=== PATIENT | female | born 1940 | race Hispanic/Latino ===

== ENCOUNTER 2018-07-31 22:57 | Emergency (ER) | payer MEDICARE ==
[2018-07-31 23:04] VITALS: TEMP 98; O2SAT 98
[2018-07-31] MEDS ORDERED: Sodium Chloride 0.9% 1,000 ML IV STA (23:14)
--- NOTE | 2018-07-31 23:31 | ED PDOC ---
HPI: General Adult Time Seen by Provider: 07/31/18 23:01 Chief Complaint (Nursing): Dizziness/Lightheaded Chief Complaint (Provider): High blood pressure History Per: Patient, Family History/Exam Limitations: no limitations Onset/Duration Of Symptoms: Hrs Current Symptoms Are (Timing): Better Additional History Per: Patient Additional Complaint(s): 78yo female, with history of hypertension, pacemaker, comes to ER accompanied by her daughter for evaluation of an episode of elevated blood pressure. Patient states she was at home, felt "dizzy" and unwell; patient states she is unable to exactly explain the symptoms but states she "didnt feel like myself." She took her blood pressure, which was 200/100 and states normally the pressure is well controlled with medication. Per patient's daughter, the patient is compliant with her medication. She reprots prior to the episode, she felt normal. Of note, patient states she ate some soup "which was delicious but salty" and feels that might have triggered the episode. Patient additionally states 2 weeks ago, she was hospitalized at [facility] due to a fever and was diagnosed with a viral ill ness. Patient states today, shortly after calling 911, she took a dose of Amlodopine and now in the ER, she feels her symptoms are resolved. No additional complaints. PMD: Dr. Ramón Almanza Past Medical History Reviewed: Historical Data, Nursing Documentation, Vital Signs Vital Signs: Last Vital Signs Temp 98.0 F 07/31/18 23:01 Pulse 82 07/31/18 23:01 Resp 18 07/31/18 23:01 BP 160/123 H 07/31/18 23:01 Pulse Ox 98 07/31/18 23:01 - Medical History PMH: HTN - Surgical History Surgical History: Pacemaker - Family History Family History: States: No Known Family Hx - Living Arrangements Living Arrangements: With Family - Social History Current smoker - smoking cessation education provided: No Alcohol: None Drugs: Denies - Allergies Allergies/Adverse Reactions: Allergies Allergy/AdvReac Type Severity Reaction Status Date / Time Penicillins Allergy RASH Verified 07/31/18 23:01 Review of Systems ROS Statement: Except As Marked, All Systems Reviewed And Found Negative (as per HPI) Neurological: Positive for: Dizziness Physical Exam - Reviewed Nursing Documentation Reviewed: Yes Vital Signs Reviewed: Yes - Physical Exam Appears: Positive for: Non-toxic, No Acute Distress Head Exam: Positive for: ATRAUMATIC, NORMAL INSPECTION, NORMOCEPHALIC Skin: Positive for: Normal Color Eye Exam: Positive for: Normal appearance Neck: Positive for: Normal, Supple Cardiovascular/Chest: Positive for: Regular Rate, Rhythm. Negative for: Tachycardia Respiratory: Positive for: Normal Breath Sounds. Negative for: Respiratory Distress Gastrointestinal/Abdominal: Positive for: Normal Exam, Soft Back: Positive for: Normal Inspection Extremity: Positive for: Normal ROM. Negative for: Pedal Edema Neurologic/Psych: Positive for: Alert, Oriented. Negative for: Motor/Sensory Deficits - Laboratory Results Result Diagrams: 07/31/18 23:30 07/31/18 23:30 - ECG O2 Sat by Pulse Oximetry: 98 (RA) Pulse Ox Interpretation: Normal Medical Decision Making Medical Decision Making: Assessment: 78yo female with resolved episode of hypertension Plan: -- Labs -- EKG -- IV FLuids -- Chest x-ray Patient to be discharged home if no recurrence of symptoms. 0000: Pt with normal paced EKG. Pt comfortable with normal BP and normal HR. PT currently asymptomatic. RN reported that peripheral line was not appropriately placed and fluids were stopped. However, pt tolerating PO water and IV fluids not necessary at this time. PT to be signed out to Dr. Stokes pending labs and most likely discharge home. Scribe Attestation: Documented by Bekah Steward, acting as a scribe for Cleo Montano MD. Provider Scribe Attestation: All medical record entries made by the Scribe were at my direction and personally dictated by me. I have reviewed the chart and agree that the record accurately reflects my personal performance of the history, physical exam, medical decision making, and the department course for this patient. I have also personally directed, reviewed, and agree with the discharge instructions and disposition. 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 Return to the emergency department if symptoms worsen or if new symptoms develop. Instructions: High Blood Pressure Emergencies, Malignant Hypertension (DC), Dizziness, Nonvertigo, (DC) Forms: [employer] (Portuguese) Print Language: LUXEMBOURGISH Patient Signed Over To: Parag Stokes
[2018-07-31 23:47] LABS: BASO % 0.8 % (0.0-2.0); EOS # 0.1 K/uL (0.0-0.7); EOS % 2.2 % (0.0-4.0); HEMOGLOBIN 14.3 g/dL (12.0-16.0); LYMPH # 1.3 K/uL (1.0-4.3); LYMPH % 21.3 % (20.0-40.0); MEAN CELL VOLUME 95.8 fl (81.0-99.0); MEAN CORPUSCULAR HEMOGLOBIN 32.5 pg (27.0-31.0); MEAN CORPUSCULAR HGB CONC 33.9 g/dL (33.0-37.0); MEAN PLATELET VOLUME 10.1 fl (7.2-11.7); MONO # 0.5 K/uL (0.0-0.8); MONO % 7.6 % (0.0-10.0); NEUT # 4.2 K/uL (1.8-7.0); NEUT % 68.1 % (50.0-75.0); NRBC % 0.1 % (0.0-0.0); RBC 4.4 Mil/uL (3.80-5.20); WHITE BLOOD COUNT 6.2 K/uL (4.8-10.8)
[2018-07-31 23:48] LABS: VENOUS BLOOD GAS BASE EXCESS -15.9 mmol/L (0.0-2.0); VENOUS BLOOD GAS PCO2 41 mmHg (40-60); VENOUS BLOOD GAS PO2 217 mm/Hg (30-55); VENOUS BLOOD PH 7.11 (7.32-7.43)
[2018-07-31 23:55] LABS: BLOOD UREA NITROGEN 22 mg/dl (7-17); CALCIUM 9.5 mg/dL (8.4-10.2); GFR NON-AFRICAN AMERICAN > 60
[2018-08-01 00:07] LABS: B-TYPE NATRIURETIC PEPTIDE 497 pg/ml (0-900)
--- NOTE | 2018-08-01 00:13 | ED PDOC ---
- Laboratory Results Result Diagrams: 07/31/18 23:30 07/31/18 23:30 - ECG O2 Sat by Pulse Oximetry: 98 (RA) Pulse Ox Interpretation: Normal Medical Decision Making Medical Decision Makin:00 Patient signed out to me by Dr. Montano pending labs, reassessment. 00:13 Labs reviewed and show no clinically significant abnormalities. Patient stable for discharge home, and instructed to follow up with PMD in 2-3 days. Scribe Attestation: Documented by Bekah Steward, acting as a scribe for Parag Stokes MD Provider Scribe Attestation: All medical record entries made by the Scribe were at my direction and personally dictated by me. I have reviewed the chart and agree that the record accurately reflects my personal performance of the history, physical exam, medical decision making, and the department course for this patient. I have also personally directed, reviewed, and agree with the discharge instructions and disposition. Disposition - Clinical Impression Clinical Impression: Dizziness, Hypertension - POA Present On Arrival: None - Disposition Disposition: Routine/Home Disposition Time: 00:13 Condition: IMPROVED Additional Instructions: Continue to take home medications as prescribed your your allocations clerk and PMD. Return to the emergency department if symptoms worsen or if new symptoms develop. Instructions: High Blood Pressure Emergencies, Dizziness, Nonvertigo, (DC), Malignant Hypertension (DC) Forms: [employer] (Italian) Print Language: NICARAGUAN
[2018-08-01 01:07] VITALS: BP 133/92; PULSE 83; RESP 12
--- NOTE | 2018-08-01 08:45 | RAD ---
Date of service: 07/31/2018 HISTORY: possible admission COMPARISON: No prior. FINDINGS: LUNGS: Bipolar permanent cardiac maker pacemaker identified positioned with generator the left pectoralis region and 2 leads identified extending into the heart by left subclavian approach. No airspace disease bilaterally. PLEURA: No significant pleural effusion identified, no pneumothorax apparent. CARDIOVASCULAR: No aortic atherosclerotic calcification present. Cardiomegaly. No pulmonary vascular congestion. Mildly prominent right paratracheal soft tissue may reflect substernal thyroid or ectatic great vessels. OSSEOUS STRUCTURES: No significant abnormalities. VISUALIZED UPPER ABDOMEN: Normal. OTHER FINDINGS: None. IMPRESSION: Cardiomegaly. No pulmonary vascular congestion. No airspace disease. Bipolar permanent cardiac pacemaker in situ.
--- NOTE | 2018-08-01 08:52 | CARD ---
APPROVED REPORT Date of service: 07/31/2018 EKG Measurement Heart [id number] <Conclusion> Atrial-paced rhythm with premature atrial complexes Left anterior fascicular block Left ventricular hypertrophy with QRS widening Cannot rule out Septal infarct, age undetermined Abnormal ECG
== END 2018-08-01 00:40 | disposition home or self-care (01) ==
LOC: H.ER 22:57
DX: I10 Essential (primary) hypertension (principal); R42 Dizziness and giddiness; Z95.0 Presence of cardiac pacemaker; Z88.0 Allergy status to penicillin
CPT/HCPCS: 71045; 80048; 82803; 83880; 84484; 85025; 93005; 96360; 99285; J7030

== ENCOUNTER 2018-08-17 01:11 | Emergency (ER) | payer MEDICARE ==
[2018-08-17 01:18] VITALS: RESP 16
[2018-08-17 02:04] LABS: BASO % 0.5 % (0.0-2.0); EOS # 0.1 K/uL (0.0-0.7); EOS % 1.6 % (0.0-4.0); HEMOGLOBIN 14.3 g/dL (12.0-16.0); LYMPH # 1.3 K/uL (1.0-4.3); LYMPH % 17.8 % (20.0-40.0); MEAN CELL VOLUME 98.3 fl (81.0-99.0); MEAN CORPUSCULAR HEMOGLOBIN 32.9 pg (27.0-31.0); MEAN CORPUSCULAR HGB CONC 33.5 g/dL (33.0-37.0); MEAN PLATELET VOLUME 9.6 fl (7.2-11.7); MONO # 0.5 K/uL (0.0-0.8); MONO % 7.2 % (0.0-10.0); NEUT # 5.3 K/uL (1.8-7.0); NEUT % 72.9 % (50.0-75.0); NRBC % 0.1 % (0.0-0.0); RBC 4.35 Mil/uL (3.80-5.20); RED CELL DISTRIBUTION WIDTH 13.4 % (11.5-14.5); WHITE BLOOD COUNT 7.3 K/uL (4.8-10.8)
[2018-08-17 02:18] LABS: B-TYPE NATRIURETIC PEPTIDE 647 pg/ml (0-900)
[2018-08-17 02:19] LABS: ALB/GLOB RATIO 1.4 (1.0-2.1); ALBUMIN 4.1 g/dL (3.5-5.0); ALT/SGPT 30 U/L (9-52); AST/SGOT 24 U/L (14-36); BLOOD UREA NITROGEN 29 mg/dl (7-17); CALCIUM 9.6 mg/dL (8.4-10.2); GFR NON-AFRICAN AMERICAN 44
[2018-08-17 02:22] LABS: INR 1.4; PROTHROMBIN TIME 15.6 Seconds (9.8-13.1)
--- NOTE | 2018-08-17 02:30 | ED PDOC ---
Syncope/Near Syncope/Dizziness Time Seen by Provider: 08/17/18 01:17 Chief Complaint (Nursing): Dizziness/Lightheaded Chief Complaint (Provider): Dizziness/Lightheaded History Per: Patient History/Exam Limitations: no limitations Onset/Duration Of Symptoms: Hrs (x1) Additional Complaint(s): 78 y/o female with history of AFib s/p 2 ablations, presents to the ED complaining of lightheadedness onset about x1 hour ago. Patient reports that she was feeling a sense of lightheadedness. Patient checked her pulse and reports a pulse of 42. She spoke with her cable reeler who advised her that reading was likely due to the device not detecting her extra beats. Patient reports that symptoms have since resolved but was still advised to come for further evaluation. Patient denies chest pain, shortness of breath, headache, nausea, or vomiting. Past Medical History Reviewed: Historical Data, Nursing Documentation, Vital Signs Vital Signs: Last Vital Signs Temp 97.6 F 08/17/18 01:17 Pulse 72 08/17/18 01:17 Resp 16 08/17/18 01:17 BP 150/94 H 08/17/18 01:17 Pulse Ox 98 08/17/18 01:17 - Medical History PMH: Atrial Fibrillation (s/p 2 ablations), HTN - Surgical History Surgical History: Pacemaker - Family History Family History: States: Unknown Family Hx - Social History Current smoker - smoking cessation education provided: No Alcohol: None Drugs: Denies - Immunization History Hx Influenza Vaccination: No - Allergies Allergies/Adverse Reactions: Allergies Allergy/AdvReac Type Severity Reaction Status Date / Time Penicillins Allergy RASH Verified 08/17/18 01:18 Review of Systems ROS Statement: Except As Marked, All Systems Reviewed And Found Negative Cardiovascular: Negative for: Chest Pain Respiratory: Negative for: Shortness of Breath Gastrointestinal: Negative for: Nausea, Vomiting Neurological: Positive for: Dizziness (Lightheadedness). Negative for: Headache Physical Exam - Reviewed Nursing Documentation Reviewed: Yes Vital Signs Reviewed: Yes - Physical Exam Appears: Positive for: Non-toxic, No Acute Distress Head Exam: Positive for: ATRAUMATIC, NORMOCEPHALIC Skin: Positive for: Normal Color, Warm, DRY Eye Exam: Positive for: EOMI, Normal appearance, PERRL Neck: Positive for: Normal, Painless ROM, Supple Cardiovascular/Chest: Positive for: Regular Rate, Rhythm. Negative for: Murmur Respiratory: Positive for: Normal Breath Sounds. Negative for: Respiratory Distress Gastrointestinal/Abdominal: Positive for: Normal Exam, Soft. Negative for: Tenderness Extremity: Positive for: Normal ROM. Negative for: Pedal Edema, Deformity Neurologic/Psych: Positive for: Alert, Oriented. Negative for: Motor/Sensory Deficits - Laboratory Results Result Diagrams: 08/17/18 01:48 08/17/18 01:48 - ECG O2 Sat by Pulse Oximetry: 98 (RA) Pulse Ox Interpretation: Normal Medical Decision Making Medical Decision Making: Time: 01:35 Initial Impression: 78 y/o female with nonspecific lightheadedness in setting of noncardiac arrhythmia Initial Plan: * EKG * BNP * CMP * Troponin * CBC w/ diff * PTT * Prothrombin time 04:36 Labs reviewed show no clinically significant abnormality. Patient remains normocardic for duration of ED visit. Additionally patient has been asymptomatic at the ED. Patient is stable for discharge. She will follow up with her wound specialist. Diagnosis is nonspecific lightheadedness. ----- Scribe Attestation: Documented by Sekou Hawley acting as a scribe for Parag Stokes MD. Provider Scribe Attestation: All medical record entries made by the Scribe were at my direction and personally dictated by me. I have reviewed the chart and agree that the record accurately reflects my personal performance of the history, physical exam, medical decision making, and the department course for this patient. I have also personally directed, reviewed, and agree with the discharge instructions and disposition. Disposition - Clinical Impression Clinical Impression: Light-headed feeling - Patient ED Disposition Is Patient to be Admitted: No - Disposition Disposition: Routine/Home Disposition Time: 04:36 Condition: STABLE Additional Instructions: MARGARETH HARDING, thank you for letting us take care of you today. Your provider was Parag Stokes MD and you were treated for DIZZINESS. The emergency medical care you received today was directed at your acute symptoms. If you were prescribed any medication, please fill it and take as directed. It may take several days for your symptoms to resolve. Return to the Emergency Department if your symptoms worsen, do not improve, or if you have any other problems. Please contact your doctor or call one of the physicians/clinics you have been referred to that are listed on the Patient Visit Information form that is included in your discharge packet. Bring any paperwork you were given at discharge with you along with any medications you are taking to your follow up visit. Our treatment cannot replace ongoing medical care by a primary care provider outside of the emergency department. Thank you for allowing the [facility] team to be part of your care today. If you had an X-Ray or CT scan: A Radiologist will review the ED reading if any change in treatment is needed we will contact you. If you had a blood, urine, or wound culture: It will take several days for the results, if any change in treatment is needed we will contact you. If you had an STI test: It will take 48 hours for the results. Please call after 1 week if you have not heard back. Instructions: Dizziness, Nonvertigo, (DC) Forms: [employer] (Namibian)
[2018-08-17 05:31] VITALS: BP 131/63; PULSE 77; TEMP 98.4; O2SAT 99
--- NOTE | 2018-08-18 07:04 | CARD ---
APPROVED REPORT Date of service: 08/17/2018 EKG Measurement Heart [id number] <Conclusion> Atrial-paced rhythm with occasional and consecutive sinus complexes Left axis deviation Left ventricular hypertrophy with QRS widening Abnormal ECG
== END 2018-08-17 04:40 | disposition home or self-care (01) ==
LOC: H.ER 01:11
DX: R42 Dizziness and giddiness (principal); I10 Essential (primary) hypertension; Z88.0 Allergy status to penicillin; Z95.0 Presence of cardiac pacemaker